=== PATIENT | female | born 1980 | race Caucasian/White ===

== ENCOUNTER 2024-04-10 13:21 | Emergency (ER) | payer MEDICAID, OTHER ==
[2024-04-10] MEDS: Diphtheria,Pertussis(Acell),Tetanus Vaccine 0.5 ML Syringe IM ONE (14:19)
[2024-04-10] MEDS: Lidocaine 1% with EPINEPHrine 1:100,000 20 ML MDV INJECT ONE (14:20)
[2024-04-10] MEDS: Bacitracin Oint 1 GM U/D Packet TOP ONE (14:35)
== END 2024-04-10 15:01 | disposition home or self-care (01) ==
LOC: EDBD 13:21 → MERGE 13:21 → JP.ED 13:21
DX: S61.412A Laceration without foreign body of left hand, initial encounter (principal); I10 Essential (primary) hypertension; Z23 Encounter for immunization; Z88.0 Allergy status to penicillin; Z88.1 Allergy status to other antibiotic agents; W26.8XXA Contact with other sharp object(s), not elsewhere classified, initial encounter
CPT/HCPCS: 12001; 90471; 90715; 99282-25; 99283